=== PATIENT | male | born 1940 | race Caucasian/White ===

== ENCOUNTER 2016-05-02 13:58 | Emergency (ER) | payer MEDICARE, BC ==
[~2016-05-02] VITALS: Ht 179.1 cm; Wt 102.9 kg
[2016-05-02 14:00] VITALS: Ht 179.1 cm; Wt 102.9 kg
--- OUTSIDE RECORDS SUMMARY | 2016-05-02 14:03 | XMS REPORT | Referral Summary ---
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 Discharge Diagnosis: Episodic atrial fibrillation Discharge Diagnosis: Allergic rhinitis Discharge Disposition: 01-Home or Self Care Attending Physician: Divya Rizvi MD Admitting Physician: Divya Rizvi MD Vital Signs Most recent to 1 oldest [Reference Range]: Temperature Temporal 35.9 degC Artery [36.3-37.8 *LOW* degC] (04/10/16 9:38 AM) Peripheral Pulse 78 bpm Rate [60-100 bpm] (04/10/16 8:22 AM) Heart Rate Monitored 65 bpm [60-100 bpm] (04/10/16 10:08 AM) Respiratory Rate 20 br/min [14-20 br/min] (04/10/16 10:08 AM) Blood Pressure 138/77 mmHg [90-140/60-90 mmHg] (04/10/16 10:08 AM) SpO2 94 % (04/10/16 9:53 AM) Problem List Condition Effective Dates Status Health Status Informant Allergic Active rhinitis(Confirmed) Allergies, Adverse Reactions, Alerts No Known Medication Allergies Substance Reaction Severity Status Dust Active Medications aspirin 325 mg oral tablet mg tabs, Oral, Daily, 0 Refill(s) Start Date: 04/10/16 Status: Ordered atorvastatin 40 mg oral tablet mg tabs, Oral, Daily, 0 Refill(s) Start Date: 04/10/16 Status: Ordered Augmentin 875 mg-125 mg oral tablet 1 tabs, Oral, q12hr, 0 Refill(s) Start Date: 04/10/16 Status: Ordered EPA Fish Oil 1000 mg oral capsule 5,000 mg 5 caps, Oral, TID, tAKES 5 CAPS TOTAL DAILY, 0 Refill(s) Start Date: 04/10/16 Status: Ordered fenofibrate 160 mg oral tablet 160 mg 1 tabs, Oral, Daily, 0 Refill(s) Start Date: 04/10/16 Status: Ordered flecainide 100 mg oral tablet 100 mg 1 tabs, Oral, q12hr, 0 Refill(s) Start Date: 04/10/16 Status: Ordered folic acid 1 mg oral tablet mg tabs, Oral, Daily, 0 Refill(s) Start Date: 04/10/16 Status: Ordered loratadine 10 mg oral tablet mg tabs, Oral, Daily, 0 Refill(s) Start Date: 04/10/16 Status: Ordered meloxicam 15 mg oral tablet mg tabs, Oral, Daily, 0 Refill(s) Start Date: 04/10/16 Status: Ordered PriLOSEC 20 mg oral delayed release capsule mg caps, Oral, Daily, 0 Refill(s) Start Date: 04/10/16 Status: Ordered sertraline 100 mg oral tablet 100 mg 1 tabs, Oral, Daily, 0 Refill(s) Start Date: 04/10/16 Status: Ordered Tessalon Perles 100 mg oral capsule mg caps, Oral, TID, 0 Refill(s) Start Date: 04/10/16 Status: Ordered Tums 500 mg oral tablet, chewable mg tabs, Chewed, Daily, 0 Refill(s) Start Date: 04/10/16 Status: Ordered Tylenol Extra Strength PM 2 tabs, Oral, Bedtime (once a day), 0 Refill(s) Start Date: 04/10/16 Status: Ordered Vitamin B1 100 mg oral tablet 100 mg 1 tabs, Oral, Daily, 0 Refill(s) Start Date: 04/10/16 Status: Ordered Vitamin D3 5000 intl units oral capsule 5,000 Intl_Units 1 caps, Oral, Daily, with food, # 100 caps, 0 Refill(s) Start Date: 04/10/16 Status: Ordered Xarelto 20 mg oral tablet 20 mg 1 tabs, Oral, qPM, # 30 tabs, 0 Refill(s) Start Date: 04/10/16 Status: Ordered Results No data available for this section Immunizations Given and Recorded Vaccine Date Status Refusal Reason influenza virus vaccine, live 11/21/10 Given influenza virus vaccine, live 11/24/09 Given zoster vaccine live 02/18/08 Given Procedures Procedure Date Related Diagnosis Body Site Cardioversion1 04/10/16 1auto-populated from documented surgical case Social History Social History Type Response Smoking Status Former smoker; Tobacco use per day: 1/2 pack or more; Number of years: 30; Date Last Use: 2002 Assessment and Plan No data available for this section
--- OUTSIDE RECORDS SUMMARY | 2016-05-02 14:03 | XMS REPORT | CCD ---
Author Author MARY PENG Organization Unknown Address [address], [place] [id number] Phone 0 Care Team Providers Care Environmental Laboratory Technician Name Role Phone RUFINO RODRIGEZ Attending Physician [phone] FARIDEH DUNCAN, W Rounding Physician [phone] Vital Signs Unknown or Not Available. Allergies Unknown or Not Available. Procedures Unknown or Not Available. History of Immunizations Unknown or Not Available. Problems Unknown or Not Available. Results MAGNESIUM Test Name Code Test Result Test Units Test Date/Time MAGNESIUM 1.9000 mg/ dL 08/02/2013 10:35 COMP METABOLIC Test Name Code Test Result Test Units Test Date/Time GLUCOSE 104.0000 mg/ dL 08/02/2013 10:35 BUN 22.0000 mg/dL 08/02/2013 10:35 CREATININE 1.1000 mg /dL 08/02/2013 10:35 AGE 73.0000 YE[age] 08/02/2013 10:35 GFR 69.9000 08/02/2013 10:35 SODIUM 137.0000 mmol /L 08/02/2013 10:35 POTASSIUM 3.7000 mmol/L 08/02/2013 10:35 CHLORIDE 104.0000 mmol/L 08/02/2013 10:35 CO2 27.0000 mmol/L 08/02/2013 10:35 CALCIUM 9.3000 mg/ dL 08/02/2013 10:35 AST 28.0000 U/L 08/02/2013 10:35 ALT 59.0000 U/L 08/02/2013 10:35 ALKALINE PHOS 61.0000 U/L 08/02/2013 10:35 TOTAL PROTEIN 6.8000 g/dL 08/02/2013 10:35 ALBUMIN 3.9000 g/dL 08/02/2013 10:35 TOTAL BILI 0.4000 mg /dL 08/02/2013 10:35 HDL CHOLESTEROL Test Name Code Test Result Test Units Test Date/Time HDL 32.0000 mg/dL 08/02/2013 10:35 CPK Test Name Code Test Result Test Units Test Date/Time CPK 211.0000 U/L 08/02/2013 10:35 TRIGLYCERIDE Test Name Code Test Result Test Units Test Date/Time TRIGLYCERIDES 127.0000 mg/dL 08/02/2013 10:35 LDL CHOLESTEROL, DIRECT Test Name Code Test Result Test Units Test Date/Time LDL, DIRECT 76.0000 mg/dL 08/02/2013 10:35 Medications Unknown or Not Available. Medications Administered Unknown or Not Available. Encounters Unknown or Not Available. Social History Smoking Status Code Start Date End Date Former smoker [id number] Patient Decision Aids Unknown or Not Available. Discharge Instructions You were admitted to [facility] on 08/02/2013. You were discharged from [facility] on 08/02/2013. Should you have any questions prior to discharge, please contact a member of your healthcare team. If you have left the hospital and have any questions, please contact your primary care physician. Chief Complaint and Reason For Visit Chief Complaint Date of Onset LAB Function Status Unknown or Not Available. Plan of Care Unknown or Not Available. Referral/Transition of Care Unknown or Not Available.
--- OUTSIDE RECORDS SUMMARY | 2016-05-02 14:03 | XMS REPORT | CCD ---
Author Author JESSICA MEJIA Organization Unknown Address [address], [place] [id number] Phone 0 Care Team Providers Care Licensed Veterinary Technician Name Role Phone Didier TILLMAN Attending Physician 0 Vital Signs Unknown or Not Available. Allergies Unknown or Not Available. Procedures Procedure Code Procedure Type Date CHEST [id number] 11/06/2015 History of Immunizations Unknown or Not Available. Problems Unknown or Not Available. Results Unknown or Not Available. Active Medications Unknown or Not Available. Medications Administered During Visit Unknown or Not Available. Encounters Encounter Diagnosis Diagnosis Code Start Date Cough R05 11/06/2015 Social History Smoking Status Code Start Date End Date Former smoker [id number] Patient Decision Aids Unknown or Not Available. Discharge Instructions You were admitted to [facility] on 11/06/2015 15:42 with a principal diagnosis of Cough You were discharged from [facility] on 11/06/2015 15:42 Should you have any questions prior to discharge, please contact a member of your healthcare team. If you have left the hospital and have any questions, please contact your primary care physician. Chief Complaint and Reason For Visit Chief Complaint Date of Onset CXR Function Status Unknown or Not Available. Plan of Care Unknown or Not Available. Referral/Transition of Care Unknown or Not Available.
--- OUTSIDE RECORDS SUMMARY | 2016-05-02 14:03 | XMS REPORT | CCD ---
Author Author JESSICA MEJIA Organization Unknown Address [address], [place] [id number] Phone 0 Care Team Providers Care Steam Box Tender Name Role Phone Karl NOVOA Attending Physician 0 Vital Signs Unknown or Not Available. Allergies Unknown or Not Available. Procedures Unknown or Not Available. History of Immunizations Unknown or Not Available. Problems Unknown or Not Available. Results PSA - Collect Date/Time: 04/25/2015 10:45 Test Name Code Test Result Test Units Test Ref Range PSA <0.05 ng/mL L=0.00 H=4.00 Active Medications Unknown or Not Available. Medications Administered During Visit Unknown or Not Available. Encounters Encounter Diagnosis Diagnosis Code Start Date Enlarged prostate without lower urinary tract symptoms N400 04/25/2015 Social History Smoking Status Code Start Date End Date Former smoker [id number] Patient Decision Aids Unknown or Not Available. Discharge Instructions You were admitted to [facility] on 04/25/2015 10:36 with a principal diagnosis of Enlarged prostate without lower urinary tract symptoms You had the following tests done: PSA You were discharged from [facility] on 04/25/2015 10:36 Should you have any questions prior to [...]
--- OUTSIDE RECORDS SUMMARY | 2016-05-02 14:03 | XMS REPORT | CCD ---
Author Author SUJATHA YING Organization Unknown Address [address] [place], [place] [address] Phone 0 Care Team Providers Care Floor Hand Name Role Phone Karl NOVOA Attending Physician 0 FARIDEH DUNCAN, W Rounding Physician [phone] Vital Signs Unknown. Allergies Unknown. Procedures Unknown. History of Immunizations Unknown. Problems Unknown. Results PSA Test Name Code Test Result Test Units Test Date/Time PSA 0.0500 ng/mL 02/23/2013 10:11 Medications Unknown. Medications Administered Unknown. Encounters Unknown. Social History Smoking Status Code Start Date End Date Former smoker [id number] Patient Decision Aids Unknown. Instructions You were admitted to [facility] on 02/23/2013. You had the following tests done: PSA You were discharged from [facility] on 02/23/2013. Should you have any questions prior to discharge, please contact a member of your healthcare team. If you have left the hospital and have any questions, please contact your primary care physician. Chief Complaint and Reason For Visit Chief Complaint Date of Onset LAB Function Status Unknown. Plan of Care Unknown. Referral/Transition of Care Unknown.
--- OUTSIDE RECORDS SUMMARY | 2016-05-02 14:03 | XMS REPORT | CCD ---
Author Author MARY PENG Organization Unknown Address [address] [place], [place] [id number] Phone 0 Care Team Providers Care Bread Packer Name Role Phone RUFINO RODRIGEZ Attending Physician [phone] Maxime VILLEGAS Rounding Physician 0 Vital Signs Unknown or Not Available. Allergies Unknown or Not Available. Procedures Unknown or Not Available. History of Immunizations Unknown or Not Available. Problems Unknown or Not Available. Results COMP METABOLIC - Collect Date/Time: 08/01/2014 09:50 Test Name Code Test Result Test Units Test Ref Range GLUCOSE 107 mg/dL L=70 H=110 BUN 20 mg/dL L=7 H=18 CREATININE 1.10 mg/ dL L=0.60 H=1.30 AGE 74 YEARS GFR 69.7 SODIUM 139 mmol/L L=136 H=145 POTASSIUM 3.7 mmol/ L L=3.5 H=5.1 CHLORIDE 104 mmol/L L=98 H=107 CO2 24 mmol/L L=21 H=32 CALCIUM 9.5 mg/dL L=8.5 H=10.1 AST 30 U/L L=15 H=37 ALT 50 U/L L=12 H=78 ALKALINE PHOS 62 U/ L L=46 H=116 TOTAL PROTEIN 6.9 g/ dL L=6.4 H=8.2 ALBUMIN 3.9 g/dL L=3.4 H=5.0 TOTAL BILI 0.80 mg/ dL L=0.00 H=1.00 CPK - Collect Date/Time: 08/01/2014 09:50 Test Name Code Test Result Test Units Test Ref Range CPK 139 U/L L=26 H=308 HDL CHOLESTEROL - Collect Date/Time: 08/01/2014 09:50 Test Name Code Test Result Test Units Test Ref Range HDL 26 mg/dL L=40 H=60 LDL CHOLESTEROL, DIRECT - Collect Date/Time: 08/01/2014 09:50 Test Name Code Test Result Test Units Test Ref Range LDL, DIRECT 96 mg/ dL L=0 H=100 TRIGLYCERIDE - Collect Date/Time: 08/01/2014 09:50 Test Name Code Test Result Test Units Test Ref Range TRIGLYCERIDES 230 mg /dL L=30 H=150 Active Medications Unknown or Not Available. Medications Administered During Visit Unknown or Not Available. Encounters Encounter Diagnosis Diagnosis Code Start Date [place]THEROS[place]EROSIS [place] 91502 08/01/2014 Social History Smoking Status Code Start Date End Date Former smoker [id number] Patient Decision Aids Unknown or Not Available. Discharge Instructions You were admitted to [facility] on 08/01/2014 with a principal diagnosis of COR ATHEROSCLEROSIS [place] COR V[place]. You were discharged from [facility] on 08/01/2014. Should you have any questions prior to discharge, please contact a member of your healthcare team. If you have left the hospital and have any questions, please contact your primary care physician. Chief Complaint and Reason For Visit Unknown or Not Available. Function Status Unknown or Not Available. Plan of Care Unknown or Not Available. Referral/Transition of Care Unknown or Not Available.
--- OUTSIDE RECORDS SUMMARY | 2016-05-02 14:03 | XMS REPORT | CCD ---
Author Author JESSICA MEJIA Organization Unknown Address [address] [place], [place] [address] Phone 0 Care Team Providers Care Grinder Set Up Operator Thread Tool Name Role Phone JUSTICE SANCHEZ Attending Physician 0 Vital Signs Unknown or Not Available. Allergies Unknown or Not Available. Procedures Unknown or Not Available. History of Immunizations Unknown or Not Available. Problems Unknown or Not Available. Results Unknown or Not Available. Active Medications Unknown or Not Available. Medications Administered During Visit Unknown or Not Available. Encounters Encounter Diagnosis Diagnosis Code Start Date Pain in left knee [id number] 09/13/2015 Social History Smoking Status Code Start Date End Date Former smoker [id number] Patient Decision Aids Unknown or Not Available. Discharge Instructions You were admitted to [facility] on 09/13/2015 08:52 with a principal diagnosis of Pain in left knee You were discharged from [facility] Should you have any questions prior to discharge, please contact a member of your healthcare team. If you have left the hospital and have any questions, please contact your primary care physician. Chief Complaint and Reason For Visit Chief Complaint Date of Onset PT Function Status Unknown or Not Available. Plan of Care Unknown or Not Available. Referral/Transition of Care Unknown or Not Available.
--- OUTSIDE RECORDS SUMMARY | 2016-05-02 14:03 | XMS REPORT | CCD ---
Author MARY Albert Organization Unknown Address [address] [place], [place] [address] Phone 0 Care Team Providers Care Supervisor Customer Services Name Role Phone Karl NOVOA Attending Physician 0 Vital Signs Unknown or Not Available. Allergies Unknown or Not Available. Procedures Unknown or Not Available. History of Immunizations Unknown or Not Available. Problems Unknown or Not Available. Results PSA - Collect Date/Time: 03/31/2014 10:13 Test Name Code Test Result Test Units Test Ref Range PSA <0.05 ng/mL L=0.00 H=4.00 Active Medications Unknown or Not Available. Medications Administered During Visit Unknown or Not Available. Encounters Unknown or Not Available. Social History Smoking Status Code Start Date End Date Former smoker [id number] Patient Decision Aids Unknown or Not Available. Discharge Instructions You were admitted to [facility] on 03/31/2014. You were discharged from [facility] on 03/31/2014. Should you have any questions prior to [...]
--- OUTSIDE RECORDS SUMMARY | 2016-05-02 14:03 | XMS REPORT | CCD ---
Author Author SUJATHA YING Organization Unknown Address [address] [place], [place] [address] Phone 0 Care Team Providers Care Bid Clerk Name Role Phone RUFINO RODRIGEZ Attending Physician [phone] FARIDEH DUNCAN, W Rounding Physician [phone] Vital Signs Unknown. Allergies Unknown. Procedures Unknown. History of Immunizations Unknown. Problems Unknown. Results TRIGLYCERIDE Test Name Code Test Result Test Units Test Date/Time TRIGLYCERIDES 73.0000 mg/dL 01/11/2013 09:45 CPK Test Name Code Test Result Test Units Test Date/Time CPK 176.0000 U/L 01/11/2013 09:45 MAGNESIUM Test Name Code Test Result Test Units Test Date/Time MAGNESIUM 1.9000 mg/ dL 01/11/2013 09:45 LDL CHOLESTEROL, DIRECT Test Name Code Test Result Test Units Test Date/Time LDL, DIRECT 69.0000 mg/dL 01/11/2013 09:45 HDL CHOLESTEROL Test Name Code Test Result Test Units Test Date/Time HDL 36.0000 mg/dL 01/11/2013 09:45 COMP METABOLIC Test Name Code Test Result Test Units Test Date/Time GLUCOSE 96.0000 mg/ dL 01/11/2013 09:45 BUN 24.0000 mg/dL 01/11/2013 09:45 CREATININE 1.3000 mg /dL 01/11/2013 09:45 AGE 72.0000 YE[age] 01/11/2013 09:45 GFR 57.8000 01/11/2013 09:45 SODIUM 140.0000 mmol /L 01/11/2013 09:45 POTASSIUM 4.0000 mmol/L 01/11/2013 09:45 CHLORIDE 103.0000 mmol/L 01/11/2013 09:45 CO2 29.0000 mmol/L 01/11/2013 09:45 CALCIUM 9.6000 mg/ dL 01/11/2013 09:45 AST 23.0000 U/L 01/11/2013 09:45 ALT 48.0000 U/L 01/11/2013 09:45 ALKALINE PHOS 103.0000 U/L 01/11/2013 09:45 TOTAL PROTEIN 7.4000 g/dL 01/11/2013 09:45 ALBUMIN 4.3000 g/dL 01/11/2013 09:45 TOTAL BILI 0.4000 mg /dL 01/11/2013 09:45 Medications Unknown. Medications Administered Unknown. Encounters Unknown. Social History Smoking Status Code Start Date End Date Former smoker [id number] Patient Decision Aids Unknown. Instructions You were admitted to [facility] on 01/11/2013. You had the following tests done: GLUCOSE BUN CREATININE AGE GFR SODIUM POTASSIUM CHLORIDE CO2 CALCIUM AST ALT ALKALINE PHOS TOTAL PROTEIN ALBUMIN TOTAL BILI MAGNESIUM CPK HDL LDL, DIRECT TRIGLYCERIDES You were discharged from [facility] on 01/11/2013. Should you have any questions prior to discharge, please contact a member of your healthcare team. If you have left the hospital and have any questions, please contact your primary care physician. Chief Complaint and Reason For Visit Chief Complaint Date of Onset LAB Function Status Unknown. Plan of Care Unknown.
--- OUTSIDE RECORDS SUMMARY | 2016-05-02 14:04 | XMS REPORT | Continuity of Care Document ---
Demographics Preferred Language Unknown Marital Status Unknown Jewish Affiliation Unknown Race Unknown Ethnic Group Unknown Author Author [facility] Organization [facility] Address Unknown Phone Unavailable Allergies Medications Problems Procedures Results Encounters ACCT No. Visit Date/Time Discharge Status Pt. Type Provider Facility Loc./Unit Complaint [id number] 12/25/2015 14:15:00 ACT Unknown [id number] 12/25/2015 13:54:00 ACT Unknown [id number] 08/25/2015 07:42:00 ACT Unknown [id number] 05/12/2015 08:01:00 ACT Unknown [id number] 03/09/2015 17:47:00 ACT Unknown [id number] 04/04/2014 09:11:00 ACT Unknown [id number] 08/26/2013 08:54:00 ACT Unknown [id number] 03/01/2013 10:25:00 ACT Unknown [id number] 01/12/2013 09:06:00 ACT Unknown
--- OUTSIDE RECORDS SUMMARY | 2016-05-02 14:04 | XMS REPORT ---
Author Author SUJATHA YING [facility] Address Unknown Phone Unavailable Care Team Providers Care Lockstitch Collar Setter Name Role Phone Dr. ASHLEY BEATTY Primary Care Physician Unavailable Allergies Allergy Description Allergy Type No known allergies - Procedures Procedure Type Procedure Description Date Physicians No codified procedures found for this patient. Results COMP METABOLIC Observation Test Name Observation Test Result Observation Test Units Observation Test Date Observation Test Time GLUCOSE 97 mg/dL 11/09 16:47 BUN 21 mg/dL 2012 16:47 CREATININE 1.30 mg/dL 11/09/2012 16:47 AGE 72 YEARS 2012 16:47 GFR 57.8 11/09/2012 16:47 SODIUM 138 mmol/L 16:47 POTASSIUM 3.7 mmol/L 11/09/2012 16:47 CHLORIDE 103 mmol/L 16:47 CO2 26 mmol/L 2012 16:47 CALCIUM 9.2 mg/dL 16:47 AST 28 U/L 11/09/2012 16:47 ALT 47 U/L 11/09/2012 16:47 ALKALINE PHOS 85 U/L 11/09/2012 16:47 TOTAL PROTEIN 7.5 g/dL 11/09/2012 16:47 ALBUMIN 4.0 g/dL 11/09 16:47 TOTAL BILI 0.50 mg/dL 11/09/2012 16:47 LIPASE Observation Test Name Observation Test Result Observation Test Units Observation Test Date Observation Test Time LIPASE 156 U/L 2012 16:47 C-REACTIVE PROTEIN Observation Test Name Observation Test Result Observation Test Units Observation Test Date Observation Test Time CRP 78 mg/L 2012 16:47 CBC W/ DIFF Observation Test Name Observation Test Result Observation Test Units Observation Test Date Observation Test Time WBC 10.8 x10^3 2012 16:38 RBC 5.09 x10^6 2012 16:38 HEMOGLOBIN 14.8 g/dL 11/09/2012 16:38 HEMATOCRIT 44.2 % 16:38 MCV 87 fL 11/09/2012 16:38 MCH 29.1 pg 2012 16:38 MCHC 33.5 g/dL 2012 16:38 RDW 13.6 % 11/09/2012 16:38 PLATELETS 302 x10^3 16:38 MPV 7.1 fL 11/09/2012 16:38 NEUTROPHILS 71.1 % 16:38 LYMPHOCYTES 18.6 % 16:38 MONOCYTES 8.9 % 2012 16:38 EOSINOPHILS 0.8 % 16:38 BASOPHILS 0.6 % 2012 16:38 REFLEX MAN DIFF NO 16:38 UA AUTO W/ MICRO Observation Test Name Observation Test Result Observation Test Units Observation Test Date Observation Test Time SPEC SOURCE: CLEAN CATCH 11/09/2012 16:43 COLOR Yellow 2012 16:43 APPEARANCE Clear 16:43 GLUCOSE Negative 16:43 BILIRUBIN Negative 11/09/2012 16:43 KETONE Negative 16:43 SPEC GRAVITY 1.015 11/09/2012 16:43 BLOOD Negative 11/09 16:43 PROTEIN Negative 16:43 PH 6.5 11/09/2012 16:43 UROBILINOGEN 0.2 16:43 NITRITE Negative 16:43 LEUKOCYTES Negative 11/09/2012 16:43 MICRO RBC None Seen 11/09/2012 16:43 MICRO WBC 0-2 2012 16:43 BACTERIA None Seen 11/09/2012 16:43 EPI CELLS None Seen 11/09/2012 16:43 MUCUS None Seen 16:43 AMORPHOUS None Seen 11/09/2012 16:43 YEAST None Seen 16:43 CRYSTALS None Seen 11/09/2012 16:43 CAST None Seen 11/09 16:43 URINE CULTURE? NO 16:43 History of Immunizations Immunization Date no immunization entries Plan of Care Item Text No plan of care items. Procedure Date/Time/Initials Critical? Status No plan of care procedures. Medication List Medication Dose Units Frequency Start Date/Time Status none Problem List Problem Entered Date Resolved Date No known problems
--- OUTSIDE RECORDS SUMMARY | 2016-05-02 14:04 | XMS REPORT | CCD ---
Author Author JESSICA MEJIA Organization Unknown Address [address], [place] [id number] Phone 0 Care Team Providers Care Piggyback Clerk Name Role Phone RUFINO RODRIGEZ Attending Physician [phone] Vital Signs Unknown or Not Available. Allergies Unknown or Not Available. Procedures Unknown or Not Available. History of Immunizations Unknown or Not Available. Problems Unknown or Not Available. Results COMP METABOLIC - Collect Date/Time: 08/08/2015 09:20 Test Name Code Test Result Test Units Test Ref Range GLUCOSE 103 mg/dL L=70 H=110 BUN 27 mg/dL L=7 H=18 CREATININE 1.17 mg/ dL L=0.60 H=1.30 AGE 75 YEARS GFR 60.9 SODIUM 137 mmol/L L=136 H=145 POTASSIUM 3.5 mmol/ L L=3.5 H=5.1 CHLORIDE 101 mmol/L L=98 H=107 CO2 26 mmol/L L=21 H=32 CALCIUM 9.7 mg/dL L=8.5 H=10.1 AST 29 U/L L=15 H=37 ALT 48 U/L L=12 H=78 ALKALINE PHOS 71 U/ L L=46 H=116 TOTAL PROTEIN 7.0 g/ dL L=6.4 H=8.2 ALBUMIN 3.8 g/dL L=3.4 H=5.0 TOTAL BILI 0.40 mg/ dL L=0.00 H=1.00 CPK - Collect Date/Time: 08/08/2015 09:20 Test Name Code Test Result Test Units Test Ref Range CPK 202 U/L L=26 H=308 HDL CHOLESTEROL - Collect Date/Time: 08/08/2015 09:20 Test Name Code Test Result Test Units Test Ref Range HDL 22 mg/dL L=40 H=60 LDL CHOLESTEROL, DIRECT - Collect Date/Time: 08/08/2015 09:20 Test Name Code Test Result Test Units Test Ref Range LDL, DIRECT 96 mg/ dL L=0 H=100 TRIGLYCERIDE - Collect Date/Time: 08/08/2015 09:20 Test Name Code Test Result Test Units Test Ref Range TRIGLYCERIDES 264 mg /dL L=30 H=150 Active Medications Unknown or Not Available. Medications Administered During Visit Unknown or Not Available. 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 Discharge Instructions You were admitted to [facility] on 08/08/2015 09:11 with a principal diagnosis of Athscl heart disease of [place] coronary artery w/o ang You had the following tests done: COMP METABOLIC CPK HDL CHOLESTEROL LDL CHOLESTEROL, DIRECT TRIGLYCERIDE You were discharged from [facility] on 08/08/2015 09:11 Should you have any questions prior to [...]
--- OUTSIDE RECORDS SUMMARY | 2016-05-02 14:04 | XMS REPORT | CCD ---
Author Author MARY PENG Organization Unknown Address [address], [place] [id number] Phone 0 Care Team Providers Care Mental Health Aide Name Role Phone RUFINO RODRIGEZ Attending Physician [phone] FARIDEH DUNCAN, W Rounding Physician [phone] Vital Signs Unknown or Not Available. Allergies [...] Code Start Date End Date Former smoker [id number] Patient Decision Aids Unknown or Not Available. Discharge Instructions You were admitted to [facility] on 08/02/2013. You were discharged from [facility] on 08/02/2013. Should you have any questions [...]
--- NOTE | 2016-05-02 14:11 | NUR ---
CT PT. TO CT PER CART.
--- NOTE | 2016-05-02 14:20 | NUR ---
CT PT. RETURNED FROM CT.
--- NOTE | 2016-05-02 14:25 | NUR ---
IVL IV LOCK STARTED ON FIRST ATTEMPT AND BLOOD DRAWN FOR LAB.
--- NOTE | 2016-05-02 14:31 | DI ---
Indication: ITS.REASON: slurred speech rule out stroke CT HEAD W/O CONTRAST: Comparison: None Technique: Nonenhanced axial imaging provided with brain and bone window evaluation utilizing dose reduction imaging technology. Findings: Patient demonstrates normal mastoids and clear sinuses. No acute bony skull fractures are appreciated. Patient shows generalized atrophy diffuse deep white matter changes. No hemorrhage, midline shift or mass is identified. Impression: 1. Scattered deep white matter changes and generalized atrophy without evidence of hemorrhage, midline shift or mass. 2. Findings were immediately called to ordering ER clinician when study provided. .
--- NOTE | 2016-05-02 14:33 | ERPDOC ---
Departure Disposition Decision Date: May 02, 2016 Disposition Decision Time: 15:55 Disposition: 01 DISCHARGED HOME, SELF-CARE Impression Impression Impression: Primary Impression: Balance problem Severity: Moderate Condition: Stable Seen By: Physician only Referrals: ANNAMARIA TORREZ II, MD (Family) Patient Instructions: Dizziness (ED) Problems/Meds/Labs Reviewed?: Yes Medications reviewed and manag: Yes Additional Instructions: Your MRI and CT scan and laboratories were completely normal, I would suspect that the medications are the etiology. I would get your surgery done tomorrow Follow up care ordered?: Yes Mental Status: Alert, Oriented HPI - CVA/Neuro General Chief Complaint: Neuro Symptoms/Deficits Stated Complaint: UNBALANCED, SLURRED SPEACH Time Seen by Provider: 14:13 Source: patient, family Onset of Symptoms Onset of Symptoms Date: Apr 29, 2016 Last Known Well Approximated: Yes HPI - CVA/NEURO Initial Comments Pt is qa 75 y/o M Afib on Xarelto removed for eye surgery tomorrow started on eye med. since friday slightly slurred speech and balance issues no falls, here for evaluation and treatment Occurred At: home Allergies: Coded Allergies: No Known Allergies (Unverified , 05/02/16) Past History Past Medical History Cardiac: A-fib, CAD, DE GI: GERD Musculoskeletal: osteoarthritis Surgical History General: appendix Social History Smoking Status: Former smoker Review of Systems Constitutional Constitutional: DENIES: appetite decrease, chills, dizziness, fever, weakness, weight gain ENMT Balance: vertigo Sinuses: DENIES: congestion Mouth/Throat: DENIES: scratchy throat, sore throat Cardiovascular Cardiac: DENIES: dyspnea on exertion Pulmonary Respiratory: DENIES: cough, dyspnea, sputum, tachypnea GI Upper Abdomen: DENIES: nausea, pain, vomiting Lower Abdomen: DENIES: constipation, diarrhea, pain General: DENIES: frequency, urgency Musculoskeletal General: DENIES: cramps, pain, weakness Integumentary Skin: DENIES: color change, itching, rash Neurological General: poor coordination, DENIES: headache Endocrine Endocrine: DENIES: heat/cold intolerance Physical Exam General General Nourishment: well nourished, well developed General Body Habitus: well groomed Vitals and Pain Weight: Kilograms: Height (feet): Height (inches): Triage Pain Scale: RN VS reviewed by Provider: Yes Eyes (brief) Eyes Brief: found: EOMI, PERRL ENMT (brief) ENMT Brief: FOUND: mucosa moist, normal dentition, NOT FOUND: nasal erythema, pharnyx erythema, tonsillar deviation Neck (brief) Neck: NOT FOUND: adenopathy, spasm, tenderness Respiratory (brief) Respiratory: FOUND: clear all clement, equal bilaterally, NOT FOUND: rales, wheezes Cardiovascular (brief) Cardiac: FOUND: regular rate, regular rhythm Capillary Refill: <2 sec Abdomen (brief) Abdominal Brief: FOUND: bowel normo active x4, soft, NOT FOUND: distended, tender Lymphatic (brief) Lymphatic Brief: NOT FOUND: adenopathy Musculoskeletal (brief) Musculoskeletal Brief: NOT FOUND: spasm Integumentary (brief) Integumentary Brief: FOUND: dry, pink, warm Neurologic Mental Status: FOUND: alert, oriented GCS Adult : GCS Eye Opening: (4)Spontaneous GCS Verbal: (5)Oriented GCS Motor: (6)Obeys Commands GCS Total: 15 Cranial Nerves: FOUND: other (CN II- XII intact) Motor : Motor Side: bilateral Motor Location: biceps, triceps, wrist, finger extensors, finger flexors, quadriceps, hamstring, foot extension, foot flexion, publications manager strength Motor Degree: 5 Unusual Movements: NOT FOUND: tremor Sensation: FOUND: sharp intact, soft touch intact x4 ext Cerebellar: FOUND: [id number] DTR's : DTR Side: bilateral DTR Location: Biceps, Patellar DTR Grade: 2+ Psychiatric (brief) Psychiatric Brief: FOUND: alert, oriented Differential Diagnoses Considering: Thrombotic CVA, Hemorrhagic CVA, Encephalitis, Hypo/hypercalcemia , Hypo/hyperglycemia, Hypo/hypernatremia, Hypothyroid, Medication Effect Progress Results/Orders Orders Procedure Category Date Status Time Ct Head W/O Contrast CT 05/02/16 Resulted 14:13 Iv Lock (Ed Only) EDM 05/02/16 Transmitted 14:38 Cbc W/Auto LAB 05/02/16 Complete Diff-Reflex Manual 14:38 Cmp - Comprehensive LAB 05/02/16 Complete Metabolic 14:38 Troponin I W LAB 05/02/16 Complete Hemolysis Index 14:38 Mri Brain W/O Contrast MRI 05/02/16 Resulted 14:45 EKG EKG 05/02/16 Taken Lab Results Laboratory Tests Test 05/02/16 14:29 White Blood Count 8.3T/MM3 Red Blood Count 5.63M/MM3 Hemoglobin 15.9GM/DL Hematocrit 47.6% Mean Corpuscular Volume 84.5UM3 Mean Corpuscular Hemoglobin 28.2UUG Mean Corpuscular Hemoglobin Concent 33.4GM/DL RDW Standard Deviation 45.2FL Platelet Count 262T/MM3 Mean Platelet Volume 10.0UM3 Immature Granulocyte % (Auto) 1.1% Neutrophils (%) (Auto) 56.3% Lymphocytes (%) (Auto) 29.3% Monocytes (%) (Auto) 9.5% Eosinophils (%) (Auto) 3.3% Basophils (%) (Auto) 0.5% Absolute Immature Granulocyte (auto 0.09T/MM3 Absolute Neutrophils (auto) 4.7T/MM3 Absolute Lymphocytes (auto) 2.4T/MM3 Absolute Monocytes (auto) 0.8T/MM3 Absolute Eosinophils (auto) 0.3T/MM3 Absolute Basophils (auto) 0.0T/MM3 Turbidity < 20 Sodium Level 144MEQ/L Potassium Level 3.8MEQ/L Chloride Level 114MEQ/L Carbon Dioxide Level 18MEQ/L Anion Gap 12MEQ/L Blood Urea Nitrogen 30.0MG/DL Creatinine 1.5MG/DL Glomerular Filtration Rate Calc 46 BUN/Creatinine Ratio 20RATIO Glucose Level 101MG/DL Calculated Osmolality 283MOSM/KG Calcium Level 10.7MG/DL Total Bilirubin 0.60MG/DL Icterus Index < 2 Aspartate Amino Transf (AST/SGOT) 41U/L Alanine Aminotransferase (ALT/SGPT) 56U/L Alkaline Phosphatase 72U/L Troponin I < 0.012ng/ml Total Protein 7.3G/DL Albumin 4.5G/DL Globulin 2.8G/DL Albumin/Globulin Ratio 1.6RATIO Chemistry Specimen Hemolysis < 15 EKG EKG : Rate: 60-100 Rhythm: atrial fibrillation Silva: normal QRS: normal Intervals: other (flutter) ST/T: non-specific changes Interpreted by: signing physician CT Date CT Interpreted for [place]: May 02, [address] Interpreted for Stroke: 14:27 CT : CT: Head no contrast Interpretation: Normal, Reviewed Written Report MRI MRI : MRI: Head MRI Interpretation: Normal, Discussed w/ Radiologist, Reviewed Written Report ULICES FERNÁNDEZ MD May 02, 2016 14:33
[2016-05-02] MEDS ORDERED: ATOR40TA64 PO (14:44)
[2016-05-02] MEDS ORDERED: FOLI1TAB15 PO (14:44)
[2016-05-02] MEDS ORDERED: ACET-62 PO (14:44)
[2016-05-02] MEDS ORDERED: ACET500C43 PO (14:44)
[2016-05-02] MEDS ORDERED: CHOL1CAP6 PO (14:44)
[2016-05-02] MEDS ORDERED: RIVA20TA PO (14:44)
[2016-05-02] MEDS ORDERED: BENZ-16 PO (14:44)
[2016-05-02] MEDS ORDERED: ASPI81TA2 PO (14:44)
[2016-05-02] MEDS ORDERED: OMEP20CA10 PO (14:44)
[2016-05-02] MEDS ORDERED: SERT100T PO (14:44)
[2016-05-02] MEDS ORDERED: [UNRECOGNIZED DRUG - CODE] PO (14:44)
[2016-05-02] MEDS ORDERED: CHOL50006 PO (14:44)
[2016-05-02] MEDS ORDERED: FLEC100T2 PO (14:44)
[2016-05-02] MEDS ORDERED: FENO160T12 PO (14:44)
--- OUTSIDE RECORDS SUMMARY | 2016-05-02 14:46 | XMS REPORT | Continuity of Care Document ---
Demographics Preferred Language Unknown Marital Status Unknown Mosque Affiliation Unknown Race Unknown Ethnic Group Unknown Author Author [facility] Organization [facility] Address Unknown Phone Unavailable Allergies Medications Problems Procedures Results Encounters ACCT No. Visit Date/Time Discharge Status Pt. Type Provider Facility Loc./Unit Complaint [id number] 12/25/2015 14:15:00 ACT Unknown [id number] 12/25/2015 13:54:00 ACT Unknown [id number] 08/25/2015 07:42:00 ACT Unknown [id number] 05/12/2015 08:01:00 ACT Unknown [id number] 03/09/2015 17:47:00 ACT Unknown [id number] 04/04/2014 09:11:00 ACT Unknown [id number] 08/26/2013 08:54:00 ACT Unknown [id number] 03/01/2013 10:25:00 ACT Unknown [id number] 01/12/2013 09:06:00 ACT Unknown
--- OUTSIDE RECORDS SUMMARY | 2016-05-02 14:46 | XMS REPORT ---
Author Author SUJATHA YING [facility] Address Unknown Phone Unavailable Care Team Providers Care Integrated Circuit Layout Designer Name Role Phone Dr. ASHLEY BEATTY Primary [...]
[2016-05-02 14:53] LABS: ALBUMIN 4.5 G/DL (3.5-5.0); ALBUMIN/GLOBULIN RATIO 1.6 RATIO (1.1-2.2); ALKALINE PHOSPHATASE 72 U/L (38-126); ALT (SGPT) 56 U/L (21-72); ANION GAP 12 MEQ/L (5-15); AST (SGOT) 41 U/L (17-59); BASOPHILS % (AUTO) 0.5 % (0-2); BUN/CREATININE RATIO 20 RATIO (6-26); CALCIUM 10.7 MG/DL (8.4-10.2); CHLORIDE 114 MEQ/L (98-107); CO2 - CARBON DIOXIDE 18 MEQ/L (22-30); CREATININE 1.5 MG/DL (0.8-1.5); EOSINOPHILS # (AUTO) 0.3 T/MM3 (0-0.5); EOSINOPHILS % (AUTO) 3.3 % (0-4); GLOMERULAR FILTRATION RATE 46; GLUCOSE 101 MG/DL (75-110); HCT - HEMATOCRIT 47.6 % (41-53); HGB - HEMOGLOBIN 15.9 GM/DL (13.5-17.5); IMMATURE GRANULOCYTE # (AUTO) 0.09 T/MM3 (0.00-0.03); IMMATURE GRANULOCYTE % (AUTO) 1.1 % (0.0-0.5); LYMPHOCYTES # (AUTO) 2.4 T/MM3 (1-4.8); LYMPHOCYTES % (AUTO) 29.3 % (23-45); MEAN CORPUSCULAR HGB 28.2 UUG (26-34); MEAN CORPUSCULAR HGB CONC(MCHC 33.4 GM/DL (31-37); MEAN CORPUSCULAR VOLUME 84.5 UM3 (80-100); MONOCYTES # (AUTO) 0.8 T/MM3 (0-0.8); MONOCYTES % (AUTO) 9.5 % (0-9.0); NEUTROPHILS #(AUTO)-ABSOLUTE 4.7 T/MM3 (1.8-7.7); NEUTROPHILS % (AUTO) 56.3 % (33-66); POTASSIUM 3.8 MEQ/L (3.6-5); RED BLOOD COUNT 5.63 M/MM3 (4.50-5.90); SODIUM 144 MEQ/L (134-144); TOTAL PROTEIN 7.3 G/DL (6.3-8.2); WBC - WHITE BLOOD COUNT 8.3 T/MM3 (4.5-11.0)
--- NOTE | 2016-05-02 15:10 | NUR ---
MRI PT. TO MRI PER WHEELCHAIR.
--- NOTE | 2016-05-02 15:47 | NUR ---
MRI PT. RETURNS FROM MRI.
--- NOTE | 2016-05-02 15:53 | DI ---
Indication: ITS.REASON: slurring of speech, question stroke CT negative MRI BRAIN W/O CONTRAST: Comparison: CT scan earlier in the day Technique: T1 and T2-weighted imaging sequences provided Findings: Patient fails to show any acute vascular insult. The diffusion-weighted images showed no significant suggestion of diffusion restriction to support a recent vascular insult. Patient does show moderate atrophy and some deep white matter degenerative changes. No hemorrhage, midline shift or mass is appreciated. Impression: 1. Generalized atrophy and minimal deep white matter change. 2. Diffusion weighted image sequences do not support acute vascular insult. 3. Findings were directly called ordering clinician when study provided. .
--- NOTE | 2016-05-02 16:05 | NUR ---
DISMISSAL NOTE DISMISSAL INSTRUCTIONS GIVEN TO PT. AND NO FURTHER QUESTIONS. PT. LEFT ED AMBULATORY WITH .
[2016-05-02 16:13] VITALS: BP 119/63; PULSE 67; RESP 18; TEMP 98.5; O2SAT 95
== END 2016-05-02 16:05 | disposition home or self-care (01) ==
LOC: ED 13:58
DX: R26.89 Other abnormalities of gait and mobility (principal); R47.81 Slurred speech; Z79.01 Long term (current) use of anticoagulants
CPT/HCPCS: 80053; 84484; 85025; 93005

== ENCOUNTER → 2016-05-28 | Outpatient (CLI) | payer MEDICARE, BC ==
[~2016-05-28] MED LIST: ACET-62 PO; ACET500C43 PO; ASPI81TA2 PO; ATOR40TA64 PO; BENZ-16 PO; CHOL1CAP6 PO; CHOL50006 PO; FENO160T12 PO; FLEC100T2 PO; FOLI1TAB15 PO; OMEP20CA10 PO; RIVA20TA PO; SERT100T PO; [UNRECOGNIZED DRUG - CODE] PO
--- NOTE | 2016-05-28 10:40 | DI ---
INDICATION: ITS.REASON: RO5 COUGH PROCEDURE: CHEST 2-VIEWS UPRIGHT (PA \T\ LAT) Encounter: Initial COMPARISON: None FINDINGS: The lungs are clear without evidence of focal abnormal airspace opacity. There is no pleural effusion or pneumothorax. The heart size is at the upper limits of normal. The mediastinal contours and pulmonary vascularity are within normal limits. 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 IMPRESSION: No acute cardiopulmonary disease. .
== END ==
LOC: IMA 10:18
PROVIDERS: ATTEND Family Medicine
DX: R05 Cough (principal)

== ENCOUNTER → 2016-06-06 | Outpatient (CLI) | payer MEDICARE, BC, OTHER | LOC: IMA.MDS 11:41 | PROVIDERS: ATTEND Family Medicine | DX: M17.0 Bilateral primary osteoarthritis of knee (principal) ==